=== PATIENT | female | born 1975 | race Caucasian/White ===

== ENCOUNTER 2017-04-01 18:02 | Inpatient (IN) | payer MEDICAID ==
[2017-04-01] MEDS ORDERED: POLYCILLIN/NS 2 GM/100 ML 2 GM/100 ML BAG IV ONE ×2 (18:31→18:33)
[2017-04-01] MEDS ORDERED: LACTATED RINGERS 1,000 ML ONE (18:31)
[2017-04-01] MEDS ORDERED: PITOCin/NS 20 UNIT/1000ML DRIP 20,000 MILLIUNITS/1,000 ML BAG IV ONE (18:57)
[2017-04-01] MEDS ORDERED: XYLOCAINE 2% INFILTRATI ONE (18:59)
[2017-04-01] MEDS ORDERED: LACTATED RINGERS 1,000 ML IV SCH (19:00)
--- NOTE | 2017-04-01 19:13 | Procedure Note ---
OB Delivery Note - Delivery Date of Delivery: 04/01/17 (7-0oz female @ 1853) Surgeon: ANITA BUCKNER Estimated blood loss: 100cc - Vaginal Delivery presentation: vertex Delivery position: OA Intrapartum events: precipitous labor- <3hr Delivery augmentation: rupture of membranes Delivery monitor: external FHT, external uterine Route of delivery: Delivery placenta: spontaneous Delivery cord: 3 umbilical vessels Episiotomy: none Delivery laceration: 1st degree (perineal) Delivery repair: vicryl Anesthesia: local (2.0 lidocain) - Infant A at 1 minute: 8 at 5 minutes: 9 Infant Gender: Female (Precipitous viable female. Bulb suctioned and placed skin to skin. spont, [place] placenta. Cord blood collected. Pitocin infusing, bleeding scant. Repair in usual fashion.)
[2017-04-01] MEDS ORDERED: PHENERGAN PR PRN (19:14)
[2017-04-01] MEDS ORDERED: LANSINOH TP PRN (19:14)
[2017-04-01] MEDS ORDERED: BENADRYL PO PRN (19:14)
[2017-04-01] MEDS ORDERED: TUCKS PAD TP PRN (19:14)
[2017-04-01] MEDS ORDERED: PHENERGAN PO PRN (19:14)
[2017-04-01] MEDS ORDERED: DULCOLAX PR PRN (19:14)
[2017-04-01] MEDS ORDERED: NORCO 5/325 PO PRN (19:14)
[2017-04-01] MEDS ORDERED: TYLENOL PO PRN (19:14)
[2017-04-01] MEDS ORDERED: SOLARCAINE ALOE TP PRN (19:14)
[2017-04-01] MEDS ORDERED: ZOFRAN IV PRN (19:14)
[2017-04-01] MEDS ORDERED: MILK OF MAGNESIA PO PRN (19:14)
[2017-04-01 19:16] LABS: Basophils % (Auto) 0.3 % (0.0-1.8); Hematocrit 38.3 % (30.3-42.9); Hemoglobin 12.9 gm/dl (10.1-14.3); Mean Corpuscular HGB Conc 34 % (30-34); Mean Corpuscular Hemoglobin 32 pg (28-32); Mean Corpuscular Volume 96 fl (79-97); Platelet Count 150 K/mm3 (140-440); Red Blood Count 4.01 M/mm3 (3.65-5.03); Red Cell Distribution Width 15.3 % (13.2-15.2)
--- NOTE | 2017-04-01 19:25 | History and Physical Report ---
History of Present Illness Date of examination: 04/01/17 Date of admission: 04/01/17 18:19 History of present illness: 41 yo presented complete/complete. AROM-clear fluid. records unable. GBS collected. last week, results unavailable. A2 diabetic with good control and AMFM comang't. Past History Past Medical History: no pertinent history Past Surgical History: no surgical history Family/Genetic History: none Social history: no significant social history - Obstetrical History : 4 Para: 3 Hx # Term Pregnancies: 3 Number of Living Children: 3 Medications and Allergies Allergies Allergy/AdvReac Type Severity Reaction Status Date / Time No Known Allergies Allergy Verified 04/01/17 18:07 Active Meds: Active Medications Acetaminophen (Tylenol) 650 mg PO Q4H PRN PRN Reason: Pain MILD(1-3)/Fever >100.5/HUI Acetaminophen/Hydrocodone Bitart ([place] 5/325) 2 each PO Q4H PRN PRN Reason: Pain, Moderate (4-6) Bisacodyl (Dulcolax) 10 mg AR BID PRN PRN Reason: Constipation Diphenhydramine HCl (Benadryl) 25 mg PO Q6H PRN PRN Reason: Itching Diphtheria/Tetanus/Acell Pertussis (Boostrix) 0.5 ml IM .ONCE ONE Stop: 04/02/17 19:15 Ampicillin Sodium (Polycillin/Ns 2 Gm/100 Ml) 2 gm in 100 mls @ 100 mls/hr IV ONCE ONE Stop: 04/01/17 19:32 Lactated Ringer's (Lactated Ringers) 1,000 mls @ 125 mls/hr IV DIRECT MARTIN Oxytocin/Sodium Chloride (Pitocin/Ns 20 Unit/1000ml Drip) 20 units in 1,000 mls @ 250 mls/hr IV DIRECT MARTIN Ibuprofen (Motrin) 600 mg PO Q6H MARTIN Lidocaine HCl (Solarcaine Aloe) 1 spray TP PRN PRN PRN Reason: Pain Magnesium Hydroxide (Milk Of Magnesia) 30 ml PO HS PRN PRN Reason: Constipation Measles/Mumps/Rubella Vaccine Live (M-M-R Ii Vaccine) 0.5 ml SUB-Q .ONCE ONE Stop: 04/02/17 19:15 Multi-Ingredient Ointment (Lansinoh) 1 applic TP PRN PRN PRN Reason: Sore Nipples Multivitamins/Iron/Calcium ( Vitamin) 1 each PO QDAY MARTIN Ondansetron HCl (Zofran) 4 mg IV Q8H PRN PRN Reason: Nausea And Vomiting Promethazine HCl (Phenergan) 25 mg AR Q6H PRN PRN Reason: Nausea And Vomiting Promethazine HCl (Phenergan) 25 mg PO Q6H PRN PRN Reason: Nausea And Vomiting Sodium Chloride (Sodium Chloride Flush Syringe 10 Ml) 10 ml IV PRN NR Witch Cherie/Glycerin (Tucks Pad) 1 each TP PRN PRN PRN Reason: Hemorrhoid/cleansing/soothing Review of Systems All systems: negative Genitourinary: deferred, normal appearance, vaginal bleeding, contractions, no leakage of fluid Rectal Exam: deferred - Vital Signs Vital signs: Vital Signs Pulse BP 76 130/73 04/01/17 18:11 04/01/17 18:11 Temp Pulse Resp BP Pulse Ox 99.1 F 71 24 110/55 85 04/01/17 18:45 04/01/17 19:05 04/01/17 18:45 04/01/17 19:05 04/01/17 18:44 - Physical Exam Breasts: Positive: deferred Abdomen: Positive: normal appearance Genitourinary (Female): Positive: normal external genitalia, normal perenium Vagina: Positive: normal moisture - Obstetrical FHR: category 1 Uterine Contraction Monitor Mode: External Cervical Dilatation: 10 Cervical Effacement Percentage: 100 station: -2 Uterine Contraction Frequency (min): 2 Uterine Contraction Pattern: Regular Uterine Tone Measurement Phase: Resting Uterine Contraction Intensity: Strong/Firm Results Result Diagrams: 04/01/17 18:30 Abnormal lab results 04/01/17 Range/Units 18:30 RDW 15.3 H (13.2-15.2) % All other labs normal. Assessment and Plan A: IUP at term Precipitious Delivery Unknown GBS status P:Routine PP orders
[2017-04-01] MEDS ORDERED: FLUARIX QUAD 2016-2017(36 MOS+) IM ONE (19:41)
[2017-04-01] MEDS ORDERED: PITOCin/NS 20 UNIT/1000ML DRIP 20 UNITS/1,000 ML BAG IV SCH (20:00)
[2017-04-01] MEDS ORDERED: SODIUM CHLORIDE FLUSH SYRINGE 10 ML IV NR (20:00)
[2017-04-01] MEDS: MOTRIN PO SCH (22:01)
[2017-04-02] MEDS: MOTRIN PO SCH ×4 (03:52→20:27)
[2017-04-02] MEDS ORDERED: BOOSTRIX IM ONE (06:00)
[2017-04-02 08:26] LABS: Hematocrit 34.3 % (30.3-42.9); Hemoglobin 11.5 gm/dl (10.1-14.3)
--- NOTE | 2017-04-02 08:56 | Progress Note ---
Assessment and Plan A/P PPD#1 doing well rh + no rhogam indicated h/h stable normal bleeding decreased tolerating pain with pain meds ambulating well continue routine PP care desires tubal ligation breast and bottle feeding d/c home tomorrow Subjective - Subjective Date of service: 04/02/17 Principal diagnosis: Patient reports: appetite normal, voiding normally, pain well controlled, flatus , ambulating normally : doing well Objective - Vital Signs Latest vital signs: Vital Signs Temp Pulse Pulse Resp BP BP Pulse Ox 04/02/17 08:45 97.8 F 66 16 93/52 04/02/17 04:00 98.6 F 76 16 106/55 04/02/17 00:40 98.6 F 87 16 101/52 04/01/17 20:37 68 117/69 04/01/17 20:21 68 110/67 04/01/17 20:06 68 104/66 04/01/17 19:51 72 103/66 04/01/17 19:36 69 106/61 04/01/17 19:22 66 109/68 04/01/17 19:15 97.7 F 18 04/01/17 19:05 71 110/55 04/01/17 18:45 99.1 F 24 04/01/17 18:44 62 85 04/01/17 18:43 71 96 04/01/17 18:38 72 99 04/01/17 18:33 71 97 04/01/17 18:25 64 139/71 04/01/17 18:11 76 130/73 Intake and Output 04/01/17 04/02/17 04/02/17 22:59 06:59 14:59 Intake Total 250 700 Output Total 300 Balance 250 400 Intake: IV 250 Lactated Ringers 1,000 ml 50 @ 125 mls/hr IV DIRECT MARTIN Rx#:[id number] PITOCin/NS 20 UNIT/1000ML 100 DRIP 20,000 milliunits In 1,000 ml As IV .STK- MED ONE Rx#:[id number] POLYCILLIN/NS 2 GM/100 ML 100 2 gm In 100 ml @ 100 mls /hr IV ONCE ONE Rx#: [id number] Oral 300 Intake, Free Water 400 Output: Urine 300 Void 300 Other: Total, Intake Amount 300 Total, Output Amount 300 Weight 89.811 kg Estimated Blood Loss 100 - Exam Breasts: Present: normal Cardiovascular: Present: Regular rate, Normal S1 Lungs: Present: Clear to auscultation, Normal air movement Abdomen: Present: normal appearance, soft, normal bowel sounds. Absent: distention, tenderness, guarding Vulva: both: normal Uterus: Present: normal, firm, fundal height below umbilicus (below 3cm ). Absent: bogginess, tenderness Extremities: Present: normal - Labs Labs: Abnormal lab results 04/01/17 Range/Units 18:30 RDW 15.3 H (13.2-15.2) %
[2017-04-02] MEDS: PRENATAL VITAMIN PO SCH (11:46)
[2017-04-02] MEDS ORDERED: M-M-R II VACCINE SUB-Q ONE (19:14)
[2017-04-03] MEDS: MOTRIN PO SCH ×2 (02:38→08:55)
--- NOTE | 2017-04-03 08:24 | Progress Note ---
Assessment and Plan A: PPD#2 s/p at term, AMA, Gestational Diabetes P: Discharge later today with follow up in 4 wks to schedule tubal ligation. Subjective - Subjective Date of service: 04/03/17 Principal diagnosis: , gestational diabetes Interval history: No complaints Patient reports: appetite normal, voiding normally, pain well controlled, ambulating normally [place]: doing well Objective - Vital Signs Latest vital signs: Vital Signs Temp Pulse Resp BP 04/03/17 08:09 97.9 F 68 16 106/62 04/02/17 23:30 98.6 F 77 16 110/65 04/02/17 16:03 98.0 F 70 16 118/56 04/02/17 12:00 98.2 F 68 18 116/54 04/02/17 08:45 97.8 F 66 16 93/52 Intake and Output 04/02/17 04/03/17 04/03/17 22:59 06:59 14:59 Intake Total 1180 400 Balance 1180 400 Intake: Oral 780 Intake, Free Water 400 400 Other: Total, Intake Amount 300 # Voids Void 1 - Exam Breasts: Present: deferred Cardiovascular: Present: Regular rate Lungs: Present: Clear to auscultation Abdomen: Present: soft (obese), distention (mild ) Uterus: Present: fundal height below umbilicus Extremities: Present: normal
--- NOTE | 2017-04-03 08:25 | Discharge Summary ---
Providers - Providers Date of Admission: 04/01/17 18:19 Date of discharge: 04/03/17 Attending physician: DEBBIE VALENCIA MD Primary care physician: DEBBIE VALENCIA MD Hospitalization Reason for admission: active labor Delivery: Procedure details: Please see delivery note. Laceration: 1st degree Other procedures: none complications: none Discharge diagnosis: IUP at term delivered [place] baby: female Hospital course: Pt underwent which she tolerated well. Her course was uncomplicated and she met discharge criteria on PPD#2. Condition at discharge: Stable Disposition: DISCHARGED TO HOME OR SELFCARE - Discharge Diagnoses (1) Term of female Status: Acute (2) Obesity Status: Acute Qualifiers: Obesity type: O Obesity severity: non-morbid (3) Advanced maternal age (AMA), 40 years or greater Status: Acute (4) Gestational diabetes Status: Acute Qualifiers: Gestational diabetes mellitus control: oral hypoglycemic-controlled Trimester: third trimester Qualified Code(s): O24.415 - Gestational diabetes mellitus in , controlled by oral hypoglycemic drugs Plan - Discharge Medications Prescriptions: Ferrous Sulfate [Feosol 325 MG tab] 325 mg PO BID #30 tablet Ibuprofen [Motrin] 600 mg PO Q8H PRN #30 tablet PRN Reason: Pain oxyCODONE /ACETAMINOPHEN [Percocet 5/325] 1 tab PO Q6HR PRN #30 tablet PRN Reason: Pain - Provider Discharge Summary Activity: routine, no sex for 6 weeks, no heavy lifting 4 weeks, no strenuous exercise Diet: routine Instructions: routine Additional instructions: [] Smoking cessation referral if applicable(refer to patient education folder for contact #) [] Refer to [facility] Booklet Call your doctor immediately for: * Fever > 100.5 * Heavy vaginal bleeding ( >1 pad per hour) * Severe persistent headache * Shortness of breath * Reddened, hot, painful area to leg or breast * Drainage or odor from incision. * Keep incision clean and dry at all times and follow doctor's instructions regarding bathing/showering - Follow up plan Follow up: DEBBIE VALENCIA MD [Primary Care Provider] - 04/30/17 ( exam )
[2017-04-03] MEDS: PRENATAL VITAMIN PO SCH (09:00)
[2017-04-03 19:53] VITALS: BP 129/77
== END 2017-04-03 20:30 | disposition home or self-care (01) | DRG 775 ==
LOC: EDBD 18:02 → TRG 18:02 → LD 18:19 → OB 21:06
PROVIDERS: ADMIT Obstetrics & Gynecology; ATTEND Obstetrics & Gynecology
PROC: 10E0XZZ Delivery of Products of Conception, External Approach (ICD-10-PCS; principal; 2017-04-01)
PROC: 0HQ9XZZ Repair Perineum Skin, External Approach (ICD-10-PCS; 2017-04-01)
DX: O62.3 Precipitate labor (principal); O70.0 First degree perineal laceration during delivery; O99.214 Obesity complicating childbirth; O24.429 Gestational diabetes mellitus in childbirth, unspecified control; O09.523 Supervision of elderly multigravida, third trimester; Z68.32 Body mass index [BMI] 32.0-32.9, adult; Z37.0 Single live birth
CPT/HCPCS: 36415; 82962; 85014; 85018; 85025; 86850; 86900; 86901; 90471; 90686; 90715; 99211; A6250; G0463; J0290; J2590; J7120